=== PATIENT | male | born 1980 | race Two or more races ===

== ENCOUNTER → 2020-11-12 | Outpatient (CLI) | payer OTHER ==
[2020-11-13 12:14] LABS: HBSAG SCREEN Negative (Negative); HCV ANTIBODY 0.1 (0.0-0.9); HEP B CORE AB, TOT Negative (Negative)
[2020-11-19 18:11] LABS: HLA B 27 DISEASE ASSOCIATION Negative (.)
== END ==
LOC: LAB 12:33
PROVIDERS: Internal Medicine
DX: M25.551 Pain in right hip (principal); M54.9 Dorsalgia, unspecified; G89.29 Other chronic pain; M25.50 Pain in unspecified joint; R74.01 Elevation of levels of liver transaminase levels
CPT/HCPCS: 36415; 72202; 73502; 81374; 83520; 86200; 86431; 86704; 86803; 87340